=== PATIENT | male | born 1950 | race Two or more races ===

== ENCOUNTER 2018-09-11 09:30 | Inpatient (IN) | payer OTHER ==
[~2018-09-11] VITALS: Ht 188 cm; Wt 131.5 kg
[2018-09-11] MEDS ORDERED: LOSARTAN POTAS100 MG PO (11:11)
[2018-09-11] MEDS ORDERED: LIPITOR20 MG PO (11:11)
[2018-09-17] MEDS ORDERED: PERCOCET 5-3251 EACH PO (12:00)
[2018-09-17] MEDS ORDERED: INTESTINEX680 M1 PO (12:00)
[2018-09-17] MEDS ORDERED: INTEGRA F CAPS1 EACH PO (12:01)
[2018-09-17] MEDS ORDERED: FOLIC ACID0.4 MG PO (12:02)
== END 2018-09-17 13:47 | disposition home or self-care (01) | DRG 330 ==
LOC: ADM 09:30 → EDSTATUS 09:30 → O/R 09-14 06:34 → SURG 09-14 06:34 → RECOVERY 09-14 09:30 → EDBD 09-14 09:30 → SURG 09-14 13:39
PROVIDERS: ADMIT Surgery
PROC: 07TB4ZZ Resection of Mesenteric Lymphatic, Percutaneous Endoscopic Approach (ICD-10-PCS; 2018-09-14)
PROC: 0DTK4ZZ Resection of Ascending Colon, Percutaneous Endoscopic Approach (ICD-10-PCS; principal; 2018-09-14 13:30)
DX: C18.2 Malignant neoplasm of ascending colon (principal); D62 Acute posthemorrhagic anemia; R59.0 Localized enlarged lymph nodes; E78.00 Pure hypercholesterolemia, unspecified

== ENCOUNTER 2019-10-12 06:40 | Day surgery (SDC) | payer OTHER ==
[~2019-10-12 06:40] MED LIST: FOLIC ACID0.4 MG PO; INTEGRA F CAPS1 EACH PO; INTESTINEX680 M1 PO; LIPITOR20 MG PO; LOSARTAN POTAS100 MG PO; PERCOCET 5-3251 EACH PO
== END 2019-10-12 12:00 | disposition home or self-care (01) ==
LOC: AMB-ENDOS 06:40
PROVIDERS: ATTEND Surgery
DX: K62.89 Other specified diseases of anus and rectum (principal); K64.8 Other hemorrhoids; Z20.828 Contact with and (suspected) exposure to other viral communicable diseases